=== PATIENT | female | born 1970 | race Caucasian/White ===

== ENCOUNTER 2020-06-29 06:13 | Day surgery (SDC) | payer BC, SELFPAY ==
[~2020-06-29] VITALS: Ht 162.6 cm; Wt 68.0 kg
[2020-06-29 06:46] LABS: HCG,QUAL RESULT NEGATIVE (NEGATIVE)
[2020-06-29] MEDS ORDERED: CEFAZOLIN SOD 1 GM in D5W 50 ML IV ONE (07:00)
[2020-06-29] MEDS ORDERED: PROPOFOL 200MG/ 20ML VIAL (DIPRIVAN) IV ONE (07:45)
[2020-06-29] MEDS ORDERED: SEVOFLURANE 15 MIN GAS INH ONE (07:45)
[2020-06-29] MEDS ORDERED: MIDAZOLAM HCL 5 MG/5 ML VIAL IVP ONE (07:45)
[2020-06-29] MEDS ORDERED: DEXAMETHASONE SOD PHOSPHATE 4 MG/ML VIAL IVP ONE (07:45)
[2020-06-29] MEDS ORDERED: fentaNYL CITRATE/PF 100 MCG/2 ML AMP IVP ONE (07:45)
[2020-06-29] MEDS ORDERED: LR 500 ML IV.SOLN IV ONE (07:45)
[2020-06-29] MEDS ORDERED: KETOROLAC TROMETHAMINE 30 MG VIAL IVP ONE (07:45)
[2020-06-29] MEDS ORDERED: ONDANSETRON HCL 4 MG/2 ML VIAL IVP ONE (07:45)
[2020-06-29] MEDS ORDERED: NS 1000 ML IV.SOLN IV ONE (07:45)
[2020-06-29] MEDS ORDERED: ONDANSETRON HCL 4 MG/2 ML VIAL IVP PRN ×2 (08:30)
[2020-06-29] MEDS ORDERED: HYDROmorphone 1 MG INJ. 1 MG/ML CARTRIDGE IVP PRN (08:30)
[2020-06-29] MEDS ORDERED: OXYCODONE/ACETAMINOPHEN 5-325 TABLET PO PRN ×2 (08:30)
[2020-06-29] MEDS ORDERED: HYDROcodone/ACETAMIN 5-325 MG TAB (NORCO/ VICODIN) PO PRN (08:30)
[2020-06-29 12:06] VITALS: BP_SYST 119
== END 2020-06-29 10:58 | disposition home or self-care (01) ==
LOC: SDS 06:13 → SMU 06:13 → SDS 10:58
PROVIDERS: ATTEND Specialist
DX: N92.6 Irregular menstruation, unspecified (principal); N84.0 Polyp of corpus uteri; Z88.0 Allergy status to penicillin; Z90.89 Acquired absence of other organs; N94.89 Other specified conditions associated with female genital organs and menstrual cycle; Z79.899 Other long term (current) drug therapy; Z20.828 Contact with and (suspected) exposure to other viral communicable diseases
CPT/HCPCS: 58558; 84703; 88305; C1819; J0690; J1100; J1885; J2250; J2405; J2704; J3010; J7030; J7060; J7120; U0003